=== PATIENT | male | born 1960 | race Caucasian/White ===

== ENCOUNTER 2020-04-18 10:34 | Outpatient (CLI) | payer OTHER, SELFPAY ==
--- NOTE | 2020-04-18 | MR_ITS ---
WS: [id number] MRI LUMBAR SPINE NONCONTRAST HISTORY: LOW BACK PAIN COMPARISON: None available. TECHNIQUE: Sagittal and axial multisequence imaging is submitted. L4 anterolisthesis by 4 mm. Mild increase in lumbar lordosis. There is mild disc space narrowing and desiccation throughout the lumbar spine. No marrow edema or ac [place] fracture. Benign hemangioma within the posterior L2 vertebral body. Postsurgical changes in the soft tissues posterior to L4-5. Conus terminates normally at L1-2 disc level. L1-L2: Mild annular disc bulging and a small amount of fluid in the LEFT facet joint. No stenosis. L2-L3: Moderate diffuse annular disc bulging with ligamentum flavum hypertrophy and facet arthritis. Mild central stenosis with mild encroachment into the subarticular recesses and mild bilateral forami nal stenosis. L3-L4: Diffuse annular disc bulging with a central annular fissure and disc protrusion. Moderate liga mentum flavum hypertrophy and facet arthritis. Moderate central, subarticular recess and foraminal st enosis. L4-L5: Diffuse annular disc bulging and ligamentum flavum hypertrophy. Thecal sac is being narrowed b y facet and disc disease. Moderate central stenosis with subarticular and foraminal stenosis. Postsur gical changes. Suspect is probably been a laminectomy on the RIGHT. Debridement of the RIGHT ligament um flavum. Fluid in the facet joints. L5-S1: Shallow central disc protrusion with minimal encroachment but no displacement on the LEFT S1 n erve root. Paravertebral soft tissues are normal. MR/MR lumbar spine wo con* [id number] IMPRESSION: 1. Moderate central, subarticular recess and bilateral foraminal stenosis at L 3-4 and L4-5 due to combination of degenerative factors. 2. Mild central, subarticular recess and foraminal stenosis at L2-3. 3. L4 anterolisthesis by 4 mm.
--- NOTE | 2020-04-18 | MR_ITS ---
WS: [id number] MRI CERVICAL SPINE HISTORY: CERVICALGIA COMPARISON: None available. Prior anterior cervical fusion from C5 to C7. Fusion across the C5-6 and C6-7 disc spaces. There are also large bridging osteophytes at C7-T1 anteriorly. No marrow edema. Mild disc space narrowing at C3 -4. Signal within the cervical cord is normal. Visualized posterior fossa is unremarkable. Craniocervical junction, C1 and C2 relationship, odontoid process and soft tissues are normal. C2-C3: Normal. C3-C4: Mild annular disc bulging with a small LEFT paracentral disc protrusion contacting the thecal sac and displacing the LEFT lateral cervical cord. Moderate stenosis centrally with mild bilateral fo raminal stenosis due to osteophyte disease. Slightly greater foraminal narrowing on the LEFT. C4-C5: Very slight annular disc bulging and osteophytic ridging. Very slight encroachment and narrowi ng the central canal. C5-C6: Mild annular disc bulging. Hypertrophic osteophytes in the paravertebral regions. No significa nt stenosis. C6-C7: Mild osteophytic ridging without stenosis. C7-T1: Moderate RIGHT and mild LEFT foraminal stenosis due to osteophyte disease predominantly. Paraspinal soft tissue are normal. MR/MR cervical spin wo con* [id number] IMPRESSION: 1. Status post anterior cervical fusion with interbody spacers from C5 to C7 w ith no complications. 2. Central LEFT paracentral disc protrusion at C3-4 with contact on the cord. Moderate central stenosis at C3-4 as described above with mild bilateral forami nal stenosis. 3. Moderate RIGHT and mild LEFT foraminal stenosis at C7-T1.
== END 2020-04-18 10:35 | disposition home or self-care (01) ==
LOC: RADSHAW 10:42
PROVIDERS: PCP Internal Medicine; Visit Provider Emergency Medicine Emergency Medical Services
DX: M54.2 Cervicalgia (principal); M54.5 Low back pain; M48.061 Spinal stenosis, lumbar region without neurogenic claudication
CPT/HCPCS: 72141; 72148